=== PATIENT | female | born 1995 | race African-American/Black ===

== ENCOUNTER 2018-02-17 06:00 | Emergency (ER) | payer OTHER ==
[~2018-02-17] VITALS: Ht 165.1 cm; Wt 59.7 kg
[2018-02-17 06:02] VITALS: BP 132/87
[2018-02-17] MEDS ORDERED: IBUPROFEN 800 MG TABLET ONE (07:17)
[2018-02-17] MEDS ORDERED: ACETAMINOPHEN 500 MG TABLET ONE (07:17)
[2018-02-17] MEDS ORDERED: ONDANSETRON ODT 4 MG ONE (07:17)
[2018-02-17] MEDS ORDERED: ONDANSETRON ODT 4 MG PO ONE (07:30)
[2018-02-17] MEDS ORDERED: ACETAMINOPHEN 500 MG TABLET PO ONE (07:30)
[2018-02-17] MEDS ORDERED: IBUPROFEN 200 MG TABLET PO ONE (07:30)
== END 2018-02-17 07:27 | disposition home or self-care (01) ==
LOC: ED 06:48
DX: K08.89 Other specified disorders of teeth and supporting structures (principal)
CPT/HCPCS: 99284; Q0162